=== PATIENT | born 1995 | race Caucasian/White ===

== ENCOUNTER 2025-02-03 15:39 | Outpatient (CLI) | payer BC, SELFPAY ==
--- NOTE | ~2025-02-03 | XR_ITS ---
EXAM/ PROCEDURE: XR thoracic spine 2V - 02/03/2025 15:43 CDT HISTORY: 29 years old Unknown with R20.0 - Anesthesia of skin COMPARISON: None available TECHNIQUE: Three view(s) FINDINGS/ IMPRESSION: There are no fractures or dislocations.Intervertebral disc spaces are within normal limits. Visualize d portion of lungs are clear. Reviewed, dictated and finalized at location A.
--- NOTE | ~2025-02-03 | XR_ITS ---
Lumbosacral Spine: AP and lateral views Clinical History: Paresthesia Findings: The normal lordotic curve is maintained. The vertebral bodies and posterior elements are i ntact. The intervertebral disc spaces are preserved. The sacroiliac joints are normally outlined. Impression: No significant abnormality. Reviewed, dictated and finalized at [facility]. Impression: No significant abnormality.
--- NOTE | ~2025-02-03 | XR_ITS ---
Cervical Spine: AP, lateral, open-mouth views Clinical History: Pain Findings: The normal lordotic curve is maintained. The vertebral bodies and posterior elements appea r intact. The intervertebral disc spaces are well maintained. Pre-vertebral soft tissues are unremar kable. Impression: No significant abnormality is seen Reviewed, dictated and finalized at [facility]. Impression: No significant abnormality is seen
== END 2025-02-03 15:40 | disposition home or self-care (01) ==
PROVIDERS: PCP Student in an Organized Health Care Education/Training Program; Visit Provider Student in an Organized Health Care Education/Training Program
DX: R20.0 Anesthesia of skin (principal); R20.2 Paresthesia of skin; R20.8 Other disturbances of skin sensation; M54.2 Cervicalgia
CPT/HCPCS: 72040; 72070; 72100